=== PATIENT | female | born 1960 | race Caucasian/White ===

== ENCOUNTER 2016-10-04 21:45 | Emergency (ER) | payer SELFPAY ==
[~2016-10-04] VITALS: Ht 165.1 cm; Wt 86.0 kg
[~2016-10-04 21:45] MED LIST: ASPI81TA82 PO; CYCL5TAB PO; DOXY100T17 PO; LORTA10 PO; LORTA5 PO; NAPR550 PO
[2016-10-04 22:11] VITALS: BP 180/119; PULSE 78; RESP 24; TEMP 98.3; O2SAT 96
[2016-10-04 22:18] VITALS: BP 201/118; PULSE 76; RESP 20; O2SAT 96
--- NOTE | 2016-10-04 22:37 | PD ---
HPI Chief Complaint: Anxiety Time Seen by Provider: 22:24 Travel History International Travel<30 days: No Contact w/Intl Traveler<30days: No Traveled to known affect area: No History of Present Illness HPI The patient is a 56-year-old female that complains of numbness and tingling in her hands and feet along with shortness of breath today. She took part of a 0.5 mg Xanax tablet and felt better but still feels some anxiety. She does have a history of anxiety and panic attacks. She has no primary care physician at this time. She does smoke one half pack a day. She also had several alcohol drinks before she came in. [facility] Past Medical History Diminished Hearing: No Hypertension: Yes ?: Not : 2 Para: 2 Social History Alcohol Use: Yes (OCCCASIONALLY) Tobacco Use: Yes (1/2 PPD) Substance Use: No Allergies-Medications (Allergen,Severity, Reaction): Coded Allergies: No Known Allergies (Unverified , 10/04/16) Reported Meds & Prescriptions Reported Meds & Active Scripts Active Reported Metoprolol Succinate ER 24 HR (Metoprolol Succinate) 50 Mg Tab 50 Mg PO BID Lisinopril 20 Mg Tab 20 Mg PO DAILY Aspirin 81 Mg Chew 81 Mg CHEW DAILY Review of Systems Except as stated in HPI: all other systems reviewed are Neg Physical Exam Narrative GENERAL: The patient is alert, anxious, oriented 3 in no respiratory distress. Her vital signs show blood pressure 180/119 and respirations of 24 but the rest of vital signs are normal. SKIN: Focused skin assessment warm/dry. HEAD: Atraumatic. Normocephalic. EYES: Pupils equal and round. No scleral icterus. No injection or drainage. ENT: No nasal bleeding or discharge. Mucous membranes pink and moist. NECK: Trachea midline. No JVD. CARDIOVASCULAR: Regular rate and rhythm. No murmur appreciated. RESPIRATORY: No accessory muscle use. Clear to auscultation. Breath sounds equal bilaterally. GASTROINTESTINAL: Abdomen soft, non-tender, nondistended. Hepatic and splenic margins not palpable. MUSCULOSKELETAL: No obvious deformities. No clubbing. No cyanosis. No edema. NEUROLOGICAL: Awake and alert. No obvious cranial nerve deficits. Motor grossly within normal limits. Normal speech. PSYCHIATRIC: Appropriate mood and affect; insight and judgment normal. Data Data Last Documented VS Vital Signs Date Time Temp Pulse Resp B/P Pulse Ox O2 Delivery O2 Flow Rate FiO2 10/04/16 22:11 98.3 78 24 180/119 96 Orders Electrocardiogram (10/04/16 22:33) MDM Medical Decision Making Medical Screen Exam Complete: Yes Emergency Medical Condition: Yes Medical Record Reviewed: Yes Interpretation(s) The EKG shows a normal sinus rhythm with a rate of 75 and is completely normal. Differential Diagnosis Anxiety/hyperventilation, acute coronary syndromehighly unlikely, pneumothorax highly unlikely Narrative Course The patient appears to have anxiety hyperventilation. She calmed down completely when she was told her EKG was normal. The repeat blood pressure is 166/94. PLan: She should follow-up with a primary care physician regarding her blood pressure. She also needs to discontinue smoking. Procedures EKG Prior to Arrival: No Diagnosis Primary Impression: Anxiety hyperventilation Additional Instructions: As we discussed, discontinue smoking and follow-up with a primary care physician. Med/Other Pt SpecificInfo: No Change to Meds Disposition: 01 DISCHARGE HOME Condition: Stable Lux Hewitt MD October 04, 2016 22:37
[2016-10-04] MEDS ORDERED: METO50TA11 PO (22:48)
[2016-10-04] MEDS ORDERED: LISI-515 PO (22:48)
[2016-10-04] MEDS ORDERED: ASPI81CH CHEW (22:48)
[2016-10-04 23:17] VITALS: BP 166/94; PULSE 73; RESP 20; O2SAT 98
--- NOTE | 2016-10-05 17:10 | EKG ---
Date Performed: 10/04/2016 Time Performed: 22:44:08 PTAGE: 56 years EKG: Sinus rhythm Normal ECG PREVIOUS TRACING : 12/05/2013 00.41 Compared to prior tracing no significant change DOCTOR: Refugio Talbot Interpretating Date/Time 10/05/2016 17:09:17
== END 2016-10-04 23:33 | disposition home or self-care (01) ==
LOC: PHED 21:45
DX: R06.4 Hyperventilation (principal); F41.9 Anxiety disorder, unspecified; I10 Essential (primary) hypertension; F17.200 Nicotine dependence, unspecified, uncomplicated
CPT/HCPCS: 93005; 99283